=== PATIENT | female | born 1950 | race Asian ===

== ENCOUNTER 2016-09-07 11:27 | Emergency (ER) | payer MEDICARE ==
[~2016-09-07] VITALS: Ht 149.9 cm; Wt 96.8 kg
[2016-09-07] MEDS ORDERED: LOSA50TA37 PO (11:42)
[2016-09-07] MEDS ORDERED: ALLO100T PO (11:42)
[2016-09-07] MEDS ORDERED: FLUT16H NASAL (11:42)
[2016-09-07] MEDS ORDERED: ALEN70TA48 PO (11:42)
[2016-09-07] MEDS ORDERED: ATOR20TA86 PO (11:42)
[2016-09-07] MEDS ORDERED: AMLO-512 PO (11:42)
[2016-09-07] MEDS ORDERED: METO-323 PO (11:42)
[2016-09-07] MEDS ORDERED: LEVO2.5S4 PO (11:42)
[2016-09-07] MEDS ORDERED: LEVO5TAB13 PO (11:44)
[2016-09-07 12:48] VITALS: BP 145/87
== END 2016-09-07 12:50 | disposition home or self-care (01) ==
LOC: EMS 11:32
DX: S23.3XXA Sprain of ligaments of thoracic spine, initial encounter (principal); S33.5XXA Sprain of ligaments of lumbar spine, initial encounter; I10 Essential (primary) hypertension; M10.9 Gout, unspecified; V49.59XA Passenger injured in collision with other motor vehicles in traffic accident, initial encounter; Y93.89 Activity, other specified; Y92.89 Other specified places as the place of occurrence of the external cause; Y99.8 Other external cause status
CPT/HCPCS: 99283

== ENCOUNTER 2017-07-20 13:32 | Inpatient (IN) | payer MEDICARE, MEDICAID ==
[~2017-07-20] VITALS: Ht 149.9 cm; Wt 58.5 kg
[~2017-07-20 13:32] MED LIST: ALEN70TA48 PO; ALLO100T PO; AMLO-512 PO; ATOR20TA86 PO; FLUT16H NASAL; LEVO5TAB13 PO; LOSA50TA37 PO; METO25XL PO
[2017-07-20] MEDS ORDERED: MELO-106 PO (13:38)
[2017-07-20] MEDS ORDERED: OMEP20CA10 PO (13:38)
[2017-07-20] MEDS ORDERED: NORT10CA2 PO (13:38)
[2017-07-20] MEDS ORDERED: METO-558 PO (13:38)
[2017-07-20] MEDS ORDERED: ERGO500014 PO (13:38)
[2017-07-20] MEDS ORDERED: NITROGLYCERIN 2% (1 GM=INCH) PACKET TP ONE (15:15)
[2017-07-20] MEDS ORDERED: ACETAMINOPHEN 500 MG TABLET PO ONE (15:15)
[2017-07-20] MEDS ORDERED: ASPIRIN 81 MG CHEWABLE TABLET PO ONE (15:15)
[2017-07-20 15:50] LABS: APPEARANCE,URINE CLEAR (CLEAR); BILIRUBIN,URINE NEGATIVE (NEGATIVE); GLUCOSE, URINE (UA) NEGATIVE (NEGATIVE); KETONES,URINE NEGATIVE (NEGATIVE); LEUKOCYTE ESTERASE ,URINE NEGATIVE (NEGATIVE); NITRATE,URINE NEGATIVE (NEGATIVE); OCCULT BLOOD,URINE NEGATIVE (NEGATIVE); PROTEIN,URINE NEGATIVE (NEGATIVE); UROBILINOGEN,URINE 0.2 mg/dL (<=1.0)
[2017-07-20 16:30] LABS: BASOPHILS % (AUTO) 0.7 % (0.0-2.0); EOSINOPHILS % (AUTO) 4.3 % (1.0-6.0); HEMATOCRIT 43.7 % (36-46); HEMOGLOBIN 14.8 g/dL (12.0-16.0); LYMPHOCYTES # (AUTO) 1.9 K/uL (1.0-4.8); LYMPHOCYTES % (AUTO) 38.5 % (22.0-44.0); MEAN CORPUSCULAR HEMOGLOBIN 30.9 pg (26.0-34.0); MEAN CORPUSCULAR HGB CONC 33.9 G/dL (31.0-37.0); MEAN CORPUSCULAR VOLUME 91 fL (80-100); MONOCYTES # (AUTO) 0.4 K/uL (0.1-1.0); NEUTROPHILS # (AUTO) 2.4 K/uL (1.8-7.7); NEUTROPHILS % (AUTO) 47.5 % (40.0-70.0); PLATELET COUNT (AUTO) 229 K/uL (150-450)
[2017-07-20 16:42] LABS: INR 0.9 (0.9-1.1); PROTHROMBIN TIME 9.4 SEC (9.4-11.6)
[2017-07-20 16:43] LABS: ANION GAP 11 mmol/L (8-16); CALCIUM, TOTAL 8.9 mg/dL (8.8-10.5); CARBON DIOXIDE 29 mmol/L (22-29); CHLORIDE 104 mmol/L (98-107); CREATININE 0.77 mg/dL (0.60-1.30); GLOMERULAR FILTR. RATE CALC > 60 mL/min (>60); GLUCOSE,RANDOM 96 mg/dL (70-110); POTASSIUM 3.8 mmol/L (3.5-5.1); SODIUM SERUM 144 mmol/L (136-145); UREA NITROGEN, BLOOD 20 mg/dL (7-18)
[2017-07-20 16:49] LABS: ALANINE AMINOTRANSFERASE 27 U/L (12-78); ALKALINE PHOSPHATASE 93 U/L (46-116); ASPARTATE AMINOTRANSFERASE 22 U/L (15-37); BILIRUBIN,TOTAL 0.4 mg/dL (0.1-1.0); TOTAL PROTEIN, SERUM 8.4 g/dL (6.4-8.2); URIC ACID 3.9 mg/dL (2.6-7.2)
[2017-07-20 16:58] LABS: B-TYPE NATRIURETIC PEPTIDE 39 pg/mL (0-100)
[2017-07-20] MEDS ORDERED: ONDANSETRON HCL 4 MG/2 ML VIAL IVP PRN ×2 (17:00→22:00)
[2017-07-20] MEDS ORDERED: 0.9% SODIUM CHLORIDE 10 ML SYRINGE IVP PRN (17:00)
[2017-07-20] MEDS ORDERED: ACETAMINOPHEN 325 MG TABLET PO PRN ×2 (17:00→22:00)
[2017-07-20 21:57] VITALS: BP 140/74
[2017-07-20] MEDS ORDERED: NITROGLYCERIN 0.4 MG SUBLINGUAL TABLET #25 SL PRN (22:00)
[2017-07-20] MEDS ORDERED: PNEUMOCOCCAL VACCINE POLYVALENT 0.5 ML VIAL [PPSV23] IM ONE (23:45)
[2017-07-20] MEDS: OXYGEN THERAPY IH SCH (23:46)
[2017-07-20] MEDS: HEPARIN SODIUM,PORCINE 5,000 UNITS/ML VIAL SQ SCH (23:46)
[2017-07-20] MEDS: NORTRIPTYLINE HCL 10 MG CAPSULE PO SCH (23:46)
[2017-07-20 23:55] VITALS: BP 139/74
[2017-07-21 04:13] VITALS: BP 139/75
[2017-07-21 06:59] LABS: BASOPHILS % (AUTO) 0.6 % (0.0-2.0); EOSINOPHILS % (AUTO) 4.8 % (1.0-6.0); HEMATOCRIT 38.1 % (36-46); HEMOGLOBIN 13.3 g/dL (12.0-16.0); LYMPHOCYTES # (AUTO) 2.1 K/uL (1.0-4.8); LYMPHOCYTES % (AUTO) 42.9 % (22.0-44.0); MEAN CORPUSCULAR HEMOGLOBIN 31.8 pg (26.0-34.0); MEAN CORPUSCULAR VOLUME 91 fL (80-100); MONOCYTES # (AUTO) 0.4 K/uL (0.1-1.0); MONOCYTES % (AUTO) 8.3 % (2.0-9.0); NEUTROPHILS # (AUTO) 2.1 K/uL (1.8-7.7); NEUTROPHILS % (AUTO) 43.4 % (40.0-70.0); PLATELET COUNT (AUTO) 222 K/uL (150-450); RED BLOOD CELL COUNT(AUTO) 4.19 MIL/uL (4.00-5.20); RED CELL DISTRIBUTION WIDTH 12.9 % (11.5-14.5)
[2017-07-21 07:12] VITALS: BP 139/84
[2017-07-21 07:14] LABS: ALANINE AMINOTRANSFERASE 25 U/L (12-78); ALBUMIN 3.4 g/dL (3.4-5.0); ALKALINE PHOSPHATASE 73 U/L (46-116); ANION GAP 9 mmol/L (8-16); ASPARTATE AMINOTRANSFERASE 18 U/L (15-37); BILIRUBIN,TOTAL 0.4 mg/dL (0.1-1.0); CALCIUM, TOTAL 8.3 mg/dL (8.8-10.5); CARBON DIOXIDE 28 mmol/L (22-29); CHLORIDE 104 mmol/L (98-107); CHOLESTEROL 169 mg/dL (131-200); CREATININE 0.71 mg/dL (0.60-1.30); GLOMERULAR FILTR. RATE CALC > 60 mL/min (>60); GLUCOSE,RANDOM 100 mg/dL (70-110); HDL CHOLESTEROL 57 mg/dL (40-60); LDL CHOL (CALC.) 96 mg/dL (0-130); POTASSIUM 3.5 mmol/L (3.5-5.1); SODIUM SERUM 141 mmol/L (136-145); TOTAL PROTEIN, SERUM 6.9 g/dL (6.4-8.2); TRIGLYCERIDES 79 mg/dL (15-150); UREA NITROGEN, BLOOD 14 mg/dL (7-18)
[2017-07-21 07:20] LABS: HEMOGLOBIN A1C 6.6 % (4.5-6.2)
[2017-07-21] MEDS: HEPARIN SODIUM,PORCINE 5,000 UNITS/ML VIAL SQ SCH ×3 (08:00→16:00)
[2017-07-21] MEDS: FLUTICASONE PROPIONATE 50 MCG/SPRAY 16 GM NASAL SPRAY NASAL SCH (08:07)
[2017-07-21] MEDS: LOSARTAN POTASSIUM 50 MG TABLET PO SCH (08:08)
[2017-07-21] MEDS: METOPROLOL SUCCINATE 50 MG ER TABLET PO SCH (08:08)
[2017-07-21] MEDS: ASPIRIN 81 MG EC TABLET PO SCH (08:08)
[2017-07-21] MEDS: ALLOPURINOL 100 MG TABLET PO SCH (08:08)
[2017-07-21] MEDS: MELOXICAM 7.5 MG TABLET PO SCH (08:08)
[2017-07-21] MEDS: OMEPRAZOLE 20 MG CAPSULE PO SCH (08:08)
[2017-07-21] MEDS: AmLODIPine BESYLATE 10 MG TABLET PO SCH (08:08)
[2017-07-21] MEDS: OXYGEN THERAPY IH SCH ×2 (08:11→20:00)
[2017-07-21] MEDS ORDERED: ERGOCALCIFEROL (VIT D2) 50,000 UNITS CAPSULE PO SCH (09:00)
[2017-07-21] MEDS ORDERED: ATORVASTATIN CALCIUM 20 MG TABLET PO SCH (09:00)
[2017-07-21 11:26] VITALS: BP 145/66
[2017-07-21] MEDS ORDERED: POTASSIUM CHLORIDE 20 MEQ ER TABLET PO ONE (11:45)
[2017-07-21 15:45] VITALS: BP 111/62
[2017-07-21 20:12] VITALS: BP 126/78
[2017-07-21] MEDS: NORTRIPTYLINE HCL 10 MG CAPSULE PO SCH (20:43)
[2017-07-22] VITALS (8 sets, daily range): BP systolic 119–145; BP diastolic 72–84
[2017-07-22 06:03] LABS: BASOPHILS % (AUTO) 0.7 % (0.0-2.0); EOSINOPHILS % (AUTO) 5.6 % (1.0-6.0); HEMATOCRIT 38.3 % (36-46); HEMOGLOBIN 13.3 g/dL (12.0-16.0); LYMPHOCYTES # (AUTO) 2.5 K/uL (1.0-4.8); LYMPHOCYTES % (AUTO) 46.4 % (22.0-44.0); MEAN CORPUSCULAR HEMOGLOBIN 31.6 pg (26.0-34.0); MEAN CORPUSCULAR HGB CONC 34.8 G/dL (31.0-37.0); MEAN CORPUSCULAR VOLUME 91 fL (80-100); MONOCYTES # (AUTO) 0.5 K/uL (0.1-1.0); MONOCYTES % (AUTO) 10.2 % (2.0-9.0); NEUTROPHILS % (AUTO) 37.1 % (40.0-70.0); PLATELET COUNT (AUTO) 244 K/uL (150-450); RED BLOOD CELL COUNT(AUTO) 4.22 MIL/uL (4.00-5.20); RED CELL DISTRIBUTION WIDTH 13.1 % (11.5-14.5)
[2017-07-22 06:16] LABS: ALANINE AMINOTRANSFERASE 36 U/L (12-78); ALBUMIN 3.4 g/dL (3.4-5.0); ALKALINE PHOSPHATASE 79 U/L (46-116); ANION GAP 7 mmol/L (8-16); ASPARTATE AMINOTRANSFERASE 22 U/L (15-37); BILIRUBIN,TOTAL 0.4 mg/dL (0.1-1.0); CALCIUM, TOTAL 8.5 mg/dL (8.8-10.5); CARBON DIOXIDE 29 mmol/L (22-29); CHLORIDE 104 mmol/L (98-107); CREATININE 0.82 mg/dL (0.60-1.30); GLOMERULAR FILTR. RATE CALC > 60 mL/min (>60); GLUCOSE,RANDOM 108 mg/dL (70-110); POTASSIUM 4.2 mmol/L (3.5-5.1); SODIUM SERUM 140 mmol/L (136-145); TOTAL PROTEIN, SERUM 7.3 g/dL (6.4-8.2); UREA NITROGEN, BLOOD 19 mg/dL (7-18)
[2017-07-22] MEDS ORDERED: REGADENOSON 0.4 MG/5 ML PF SYRINGE IVP ONE (08:00)
[2017-07-22] MEDS ORDERED: AMINOPHYLLINE 25 MG/ML 10 ML VIAL IVP ONE ×2 (08:07→17:26)
[2017-07-22] MEDS: ATORVASTATIN CALCIUM 40 MG TABLET PO SCH (09:33)
[2017-07-22] MEDS: ALLOPURINOL 100 MG TABLET PO SCH (09:33)
[2017-07-22] MEDS: ASPIRIN 81 MG EC TABLET PO SCH (09:34)
[2017-07-22] MEDS: AmLODIPine BESYLATE 10 MG TABLET PO SCH (09:34)
[2017-07-22] MEDS: OMEPRAZOLE 20 MG CAPSULE PO SCH (09:34)
[2017-07-22] MEDS: MELOXICAM 7.5 MG TABLET PO SCH (09:34)
[2017-07-22] MEDS: LOSARTAN POTASSIUM 50 MG TABLET PO SCH (09:34)
[2017-07-22] MEDS: HEPARIN SODIUM,PORCINE 5,000 UNITS/ML VIAL SQ SCH ×3 (09:34→17:14)
[2017-07-22] MEDS: FLUTICASONE PROPIONATE 50 MCG/SPRAY 16 GM NASAL SPRAY NASAL SCH (09:34)
[2017-07-22] MEDS: OXYGEN THERAPY IH SCH ×2 (09:35→20:00)
[2017-07-22] MEDS: METOPROLOL SUCCINATE 50 MG ER TABLET PO SCH (10:12)
[2017-07-22] MEDS: NORTRIPTYLINE HCL 10 MG CAPSULE PO SCH (20:26)
[2017-07-23] MEDS: HEPARIN SODIUM,PORCINE 5,000 UNITS/ML VIAL SQ SCH ×2 (00:12→08:21)
[2017-07-23 00:13] VITALS: BP 131/73
[2017-07-23 04:58] VITALS: BP 114/69
[2017-07-23 06:44] LABS: BASOPHILS % (AUTO) 0.6 % (0.0-2.0); EOSINOPHILS % (AUTO) 5.8 % (1.0-6.0); HEMATOCRIT 38.7 % (36-46); HEMOGLOBIN 13.8 g/dL (12.0-16.0); LYMPHOCYTES % (AUTO) 53.3 % (22.0-44.0); MEAN CORPUSCULAR HEMOGLOBIN 32.8 pg (26.0-34.0); MEAN CORPUSCULAR HGB CONC 35.8 G/dL (31.0-37.0); MEAN CORPUSCULAR VOLUME 92 fL (80-100); MONOCYTES # (AUTO) 0.5 K/uL (0.1-1.0); MONOCYTES % (AUTO) 8.4 % (2.0-9.0); NEUTROPHILS # (AUTO) 1.8 K/uL (1.8-7.7); NEUTROPHILS % (AUTO) 31.9 % (40.0-70.0); PLATELET COUNT (AUTO) 258 K/uL (150-450); RED BLOOD CELL COUNT(AUTO) 4.22 MIL/uL (4.00-5.20); RED CELL DISTRIBUTION WIDTH 13.1 % (11.5-14.5)
[2017-07-23 07:39] VITALS: BP 125/71
[2017-07-23 07:49] LABS: ALANINE AMINOTRANSFERASE 34 U/L (12-78); ALBUMIN 3.5 g/dL (3.4-5.0); ALKALINE PHOSPHATASE 84 U/L (46-116); ANION GAP 9 mmol/L (8-16); ASPARTATE AMINOTRANSFERASE 20 U/L (15-37); BILIRUBIN,TOTAL 0.4 mg/dL (0.1-1.0); CALCIUM, TOTAL 8.6 mg/dL (8.8-10.5); CARBON DIOXIDE 27 mmol/L (22-29); CHLORIDE 104 mmol/L (98-107); CREATININE 0.92 mg/dL (0.60-1.30); GLOMERULAR FILTR. RATE CALC > 60 mL/min (>60); GLUCOSE,RANDOM 108 mg/dL (70-110); POTASSIUM 3.8 mmol/L (3.5-5.1); SODIUM SERUM 140 mmol/L (136-145); TOTAL PROTEIN, SERUM 7.5 g/dL (6.4-8.2); UREA NITROGEN, BLOOD 24 mg/dL (7-18)
[2017-07-23] MEDS: OXYGEN THERAPY IH SCH (08:00)
[2017-07-23] MEDS: MELOXICAM 7.5 MG TABLET PO SCH (08:21)
[2017-07-23] MEDS: METOPROLOL SUCCINATE 50 MG ER TABLET PO SCH (08:21)
[2017-07-23] MEDS: AmLODIPine BESYLATE 10 MG TABLET PO SCH (08:21)
[2017-07-23] MEDS: ASPIRIN 81 MG EC TABLET PO SCH (08:21)
[2017-07-23] MEDS: FLUTICASONE PROPIONATE 50 MCG/SPRAY 16 GM NASAL SPRAY NASAL SCH (08:21)
[2017-07-23] MEDS: ALLOPURINOL 100 MG TABLET PO SCH (08:21)
[2017-07-23] MEDS: OMEPRAZOLE 20 MG CAPSULE PO SCH (08:21)
[2017-07-23] MEDS: LOSARTAN POTASSIUM 50 MG TABLET PO SCH (08:21)
[2017-07-23] MEDS: ATORVASTATIN CALCIUM 40 MG TABLET PO SCH (08:21)
[2017-07-23 11:28] VITALS: BP 124/67
[2017-07-24] MEDS ORDERED: ALENDRONATE SODIUM 70 MG TABLET PO SCH (06:30)
== END 2017-07-23 15:30 | disposition home or self-care (01) | DRG 311 ==
LOC: EMS 13:33 → 5N 17:22
PROVIDERS: ADMIT Family Medicine; ATTEND Family Medicine
PROC: 3E0234Z Introduction of Serum, Toxoid and Vaccine into Muscle, Percutaneous Approach (ICD-10-PCS; 2017-07-20)
PROC: 4A02XM4 Measurement of Cardiac Total Activity, External Approach (ICD-10-PCS; principal; 2017-07-22)
PROC: 3E033HZ Introduction of Radioactive Substance into Peripheral Vein, Percutaneous Approach (ICD-10-PCS; 2017-07-22)
DX: I20.0 Unstable angina (principal); E78.00 Pure hypercholesterolemia, unspecified; F32.9 Major depressive disorder, single episode, unspecified; I49.9 Cardiac arrhythmia, unspecified; I10 Essential (primary) hypertension; I70.0 Atherosclerosis of aorta; K21.9 Gastro-esophageal reflux disease without esophagitis; M10.9 Gout, unspecified; Z79.899 Other long term (current) drug therapy; Z82.49 Family history of ischemic heart disease and other diseases of the circulatory system
CPT/HCPCS: 78452; 83036; 83735; 84550; 90471; 93005; 93017; 93306; 99285; J0280; J1644

== ENCOUNTER 2017-12-03 14:54 | Emergency (ER) | payer MEDICARE, MEDICAID ==
[~2017-12-03] VITALS: Ht 149.9 cm; Wt 57.3 kg
[~2017-12-03 14:54] MED LIST changes: +ERGO500014 PO; +LOSA50TA25 PO; -LOSA50TA37 PO; +MELO-106 PO; +METO-558 PO; -METO25XL PO; +NORT10CA2 PO; +OMEP20CA10 PO
[2017-12-03] MEDS ORDERED: ONDANSETRON HCL 4 MG/2 ML VIAL IVP ONE (17:00)
[2017-12-03] MEDS ORDERED: KETOROLAC TROMETHAMINE 30 MG/ML VIAL IVP ONE (17:00)
[2017-12-03] MEDS ORDERED: SODIUM CHLORIDE 0.9% 1,000 ML IV ONE (17:00)
[2017-12-03 17:47] LABS: HEMOGLOBIN 14.9 g/dL (12.0-16.0); LYMPHOCYTES # (AUTO) 1.7 K/uL (1.0-4.8); LYMPHOCYTES % (AUTO) 44.9 % (22.0-44.0); MEAN CORPUSCULAR HEMOGLOBIN 31.4 pg (26.0-34.0); MEAN CORPUSCULAR HGB CONC 33.8 G/dL (31.0-37.0); MEAN CORPUSCULAR VOLUME 93 fL (80-100); MONOCYTES # (AUTO) 0.3 K/uL (0.1-1.0); MONOCYTES % (AUTO) 8.5 % (2.0-9.0); NEUTROPHILS # (AUTO) 1.6 K/uL (1.8-7.7); NEUTROPHILS % (AUTO) 42.6 % (40.0-70.0); PLATELET COUNT (AUTO) 243 K/uL (150-450); RED BLOOD CELL COUNT(AUTO) 4.74 MIL/uL (4.00-5.20); RED CELL DISTRIBUTION WIDTH 13.1 % (11.5-14.5)
[2017-12-03 17:57] LABS: ANION GAP 11 mmol/L (8-16); CALCIUM, TOTAL 8.2 mg/dL (8.8-10.5); CARBON DIOXIDE 28 mmol/L (22-29); CHLORIDE 105 mmol/L (98-107); CREATININE 0.73 mg/dL (0.60-1.30); GLOMERULAR FILTR. RATE CALC > 60 mL/min (>60); GLUCOSE,RANDOM 99 mg/dL (70-110); POTASSIUM 3.4 mmol/L (3.5-5.1); SODIUM SERUM 144 mmol/L (136-145); UREA NITROGEN, BLOOD 7 mg/dL (7-18)
[2017-12-03 18:01] LABS: ALANINE AMINOTRANSFERASE 31 U/L (12-78); ALBUMIN 4.2 g/dL (3.4-5.0); ALKALINE PHOSPHATASE 80 U/L (46-116); ASPARTATE AMINOTRANSFERASE 25 U/L (15-37); BILIRUBIN,TOTAL 0.4 mg/dL (0.1-1.0); LIPASE 201 U/L (73-393)
[2017-12-03 19:12] LABS: APPEARANCE,URINE CLEAR (CLEAR); BILIRUBIN,URINE NEGATIVE (NEGATIVE); GLUCOSE, URINE (UA) NEGATIVE (NEGATIVE); KETONES,URINE NEGATIVE (NEGATIVE); LEUKOCYTE ESTERASE ,URINE NEGATIVE (NEGATIVE); NITRATE,URINE NEGATIVE (NEGATIVE); OCCULT BLOOD,URINE NEGATIVE (NEGATIVE); PH,URINE 7.5 (5.0-8.0); PROTEIN,URINE NEGATIVE (NEGATIVE); UROBILINOGEN,URINE 0.2 mg/dL (<=1.0)
[2017-12-03 19:20] VITALS: BP 147/63
== END 2017-12-03 20:29 | disposition home or self-care (01) ==
LOC: EMS 14:55
DX: R10.32 Left lower quadrant pain (principal); R11.2 Nausea with vomiting, unspecified; R19.7 Diarrhea, unspecified; M19.90 Unspecified osteoarthritis, unspecified site; F32.9 Major depressive disorder, single episode, unspecified; K21.9 Gastro-esophageal reflux disease without esophagitis; E78.00 Pure hypercholesterolemia, unspecified; I10 Essential (primary) hypertension
CPT/HCPCS: 36415; 71045; 74176; 80053; 81003; 83690; 84484; 85025; 93005; 96361; 96374; 96375; 99285; J1885; J2405; J7030

== ENCOUNTER 2018-10-12 13:55 | Emergency (ER) | payer MEDICARE, MEDICAID ==
[~2018-10-12] VITALS: Ht 139.7 cm; Wt 57.7 kg
[~2018-10-12 13:55] MED LIST changes: +ALEN70TA10 PO; -ALEN70TA48 PO; -AMLO-512 PO; +AMLO10TA7 PO; -LOSA50TA25 PO; +LOSA50TA64 PO; +OMEP-50 PO; -OMEP20CA10 PO
[2018-10-12 15:57] LABS: BASOPHILS % (AUTO) 0.7 % (0.0-2.0); HEMATOCRIT 45.1 % (36-46); HEMOGLOBIN 14.8 g/dL (12.0-16.0); LYMPHOCYTES # (AUTO) 2.2 K/uL (1.0-4.8); MEAN CORPUSCULAR HEMOGLOBIN 31.4 pg (26.0-34.0); MEAN CORPUSCULAR HGB CONC 32.8 G/dL (31.0-37.0); MEAN CORPUSCULAR VOLUME 96 fL (80-100); MONOCYTES # (AUTO) 0.4 K/uL (0.1-1.0); MONOCYTES % (AUTO) 7.2 % (2.0-9.0); NEUTROPHILS # (AUTO) 2.6 K/uL (1.8-7.7); NEUTROPHILS % (AUTO) 48.1 % (40.0-70.0); PLATELET COUNT (AUTO) 250 K/uL (150-450); RED BLOOD CELL COUNT(AUTO) 4.72 MIL/uL (4.00-5.20); RED CELL DISTRIBUTION WIDTH 14.1 % (11.5-14.5)
[2018-10-12 16:16] LABS: ANION GAP 8 mmol/L (8-16); CALCIUM, TOTAL 9.6 mg/dL (8.8-10.5); CARBON DIOXIDE 28 mmol/L (22-29); CHLORIDE 105 mmol/L (98-107); CREATININE 0.78 mg/dL (0.60-1.30); GLOMERULAR FILTR. RATE CALC > 60 mL/min (>60); GLUCOSE,RANDOM 110 mg/dL (70-110); POTASSIUM 3.8 mmol/L (3.5-5.1); SODIUM SERUM 141 mmol/L (136-145); UREA NITROGEN, BLOOD 16 mg/dL (7-18)
[2018-10-12 16:22] LABS: ALANINE AMINOTRANSFERASE 19 U/L (12-78); ALBUMIN 4.5 g/dL (3.4-5.0); ALKALINE PHOSPHATASE 81 U/L (46-116); ASPARTATE AMINOTRANSFERASE 21 U/L (15-37); BILIRUBIN,TOTAL 0.3 mg/dL (0.1-1.0); LIPASE 215 U/L (73-393); TOTAL PROTEIN, SERUM 8.1 g/dL (6.4-8.2)
[2018-10-12] MEDS ORDERED: SODIUM CHLORIDE 0.9% 1,000 ML IV ONE (16:45)
[2018-10-12 16:57] LABS: APPEARANCE,URINE CLEAR (CLEAR); BILIRUBIN,URINE NEGATIVE (NEGATIVE); GLUCOSE, URINE (UA) NEGATIVE (NEGATIVE); KETONES,URINE NEGATIVE (NEGATIVE); LEUKOCYTE ESTERASE ,URINE NEGATIVE (NEGATIVE); NITRATE,URINE NEGATIVE (NEGATIVE); OCCULT BLOOD,URINE NEGATIVE (NEGATIVE); PROTEIN,URINE NEGATIVE (NEGATIVE); UROBILINOGEN,URINE 0.2 mg/dL (<=1.0)
[2018-10-12] MEDS ORDERED: IOVERSOL 320 MG/ML 100 ML VIAL ONE (18:05)
[2018-10-12 20:14] VITALS: BP 137/73
== END 2018-10-12 20:37 | disposition home or self-care (01) ==
LOC: EMS 13:55
DX: R10.84 Generalized abdominal pain (principal); R19.7 Diarrhea, unspecified; E78.00 Pure hypercholesterolemia, unspecified; I10 Essential (primary) hypertension; K21.9 Gastro-esophageal reflux disease without esophagitis; F32.9 Major depressive disorder, single episode, unspecified; Z79.899 Other long term (current) drug therapy
CPT/HCPCS: 36415; 71045; 74177; 80053; 81003; 83690; 83880; 84484; 85025; 93005; 96360; 96361; 99284; J7030; Q9967

== ENCOUNTER 2020-04-29 11:31 | Emergency (ER) | payer MEDICARE, MEDICAID ==
[~2020-04-29] VITALS: Ht 149.9 cm; Wt 55.9 kg
[~2020-04-29 11:31] MED LIST changes: -ALEN70TA10 PO; +ALEN70TA65 PO; -ALLO100T PO; +ALLO100T2 PO; +AMLO-258 PO; -AMLO10TA7 PO; +LOSA50TA37 PO; -LOSA50TA64 PO; -OMEP-50 PO; +OMEP20CA12 PO
[2020-04-29 12:11] LABS: BASOPHILS % (AUTO) 0.4 % (0.0-2.0); EOSINOPHILS % (AUTO) 2.4 % (1.0-6.0); HEMATOCRIT 41.1 % (36-46); HEMOGLOBIN 13.8 g/dL (12.0-16.0); LYMPHOCYTES # (AUTO) 1.6 K/uL (1.0-4.8); LYMPHOCYTES % (AUTO) 24.6 % (22.0-44.0); MEAN CORPUSCULAR HEMOGLOBIN 32.2 pg (26.0-34.0); MEAN CORPUSCULAR HGB CONC 33.7 G/dL (31.0-37.0); MEAN CORPUSCULAR VOLUME 96 fL (80-100); MONOCYTES # (AUTO) 0.5 K/uL (0.1-1.0); MONOCYTES % (AUTO) 7.1 % (2.0-9.0); NEUTROPHILS # (AUTO) 4.4 K/uL (1.8-7.7); NEUTROPHILS % (AUTO) 65.5 % (40.0-70.0); PLATELET COUNT (AUTO) 223 K/uL (150-450); RED CELL DISTRIBUTION WIDTH 13.2 % (11.5-14.5)
[2020-04-29 12:29] LABS: ANION GAP 9 mmol/L (8-16); CARBON DIOXIDE 29 mmol/L (22-29); CHLORIDE 106 mmol/L (98-107); CREATININE 0.83 mg/dL (0.60-1.30); GLOMERULAR FILTR. RATE CALC > 60 mL/min (>60); GLUCOSE,RANDOM 130 mg/dL (70-110); SODIUM SERUM 144 mmol/L (136-145); UREA NITROGEN, BLOOD 16 mg/dL (7-18)
[2020-04-29 12:56] LABS: ALANINE AMINOTRANSFERASE 32 U/L (12-78); ALKALINE PHOSPHATASE 70 U/L (46-116); ASPARTATE AMINOTRANSFERASE 18 U/L (15-37); BILIRUBIN,TOTAL 0.5 mg/dL (0.1-1.0); CREATINE KINASE, TOTAL ONLY 138 U/L (26-192); TOTAL PROTEIN, SERUM 7.7 g/dL (6.4-8.2)
[2020-04-29 13:21] VITALS: BP 112/66
== END 2020-04-29 13:58 | disposition home or self-care (01) ==
LOC: EMS 11:33
DX: R00.2 Palpitations (principal); M25.511 Pain in right shoulder; F32.9 Major depressive disorder, single episode, unspecified; K21.9 Gastro-esophageal reflux disease without esophagitis; E78.00 Pure hypercholesterolemia, unspecified; I10 Essential (primary) hypertension; Z91.011 Allergy to milk products
CPT/HCPCS: 83735; 93005; 99284

== ENCOUNTER 2023-01-26 19:29 | Emergency (ER) | payer MEDICARE, MEDICAID ==
[~2023-01-26] VITALS: Ht 152.4 cm; Wt 76.0 kg
[~2023-01-26 19:29] MED LIST changes: +ALLO-97 PO; -ALLO100T2 PO; +ATOR20TA PO; -ATOR20TA86 PO; -FLUT16H NASAL; +FLUT16SP NASAL; +LOSA-382 PO; -LOSA50TA37 PO
[2023-01-26 19:33] VITALS: TEMP 98.3
[2023-01-26] MEDS ORDERED: ACETAMINOPHEN 500 MG TABLET PO ONE (19:45)
[2023-01-26] MEDS ORDERED: KETOROLAC TROMETHAMINE 30 MG/ML VIAL IM ONE (19:45)
[2023-01-26] MEDS ORDERED: ACET-3385 PO (19:54)
[2023-01-26] MEDS ORDERED: IBUP-1492 PO (19:54)
[2023-01-26 20:22] VITALS: BP 132/76; PULSE 88; RESP 17
[2023-01-27] MEDS ORDERED: METO-416 PO (11:35)
[2023-01-27] MEDS ORDERED: CHOL500043 PO (11:35)
[2023-01-27] MEDS ORDERED: CANA100T PO (11:35)
== END 2023-01-26 20:23 | disposition home or self-care (01) ==
LOC: EMS 19:29
DX: M54.12 Radiculopathy, cervical region (principal); M19.90 Unspecified osteoarthritis, unspecified site; F32.A Depression, unspecified; E78.00 Pure hypercholesterolemia, unspecified; I10 Essential (primary) hypertension; E73.9 Lactose intolerance, unspecified; Z98.890 Other specified postprocedural states
CPT/HCPCS: 99283; 96372; J1885

== ENCOUNTER 2023-02-09 16:30 | Emergency (ER) | payer MEDICARE, MEDICAID ==
[~2023-02-09] VITALS: Ht 142.2 cm; Wt 57.7 kg
[~2023-02-09 16:30] MED LIST changes: +ACET-3385 PO; +CANA100T PO; +CHOL500043 PO; -ERGO500014 PO; +IBUP-1492 PO; +METO-416 PO; -METO-558 PO
[2023-02-09] MEDS ORDERED: PredniSONE 20 MG TABLET PO ONE (21:00)
[2023-02-09] MEDS ORDERED: KETOROLAC TROMETHAMINE 30 MG/ML VIAL IM ONE (21:00)
[2023-02-09] MEDS ORDERED: IBUP-1492 PO (21:07)
[2023-02-09 21:32] VITALS: BP 133/68; PULSE 68; RESP 16; TEMP 98.3
== END 2023-02-09 21:40 | disposition home or self-care (01) ==
LOC: EMS 16:31
DX: M25.511 Pain in right shoulder (principal); E78.00 Pure hypercholesterolemia, unspecified; I10 Essential (primary) hypertension; F32.A Depression, unspecified; K21.9 Gastro-esophageal reflux disease without esophagitis; M10.9 Gout, unspecified; Z98.890 Other specified postprocedural states
CPT/HCPCS: 99283; 96372; J1885; J7512